=== PATIENT | female | born 1955 | race Caucasian/White ===

== ENCOUNTER 2021-01-02 15:18 | Emergency (ER) | payer BC, SELFPAY ==
[2021-01-02] VITALS (45 sets, daily range): BP systolic 143–182; BP diastolic 55–123; PULSE 60–86; RESP 9–24; TEMP 36.8; O2SAT 90–97
--- NOTE | 2021-01-02 15:30 | ED.GENADUL_ITS ---
Discharge Plan Disposition Patient Disposition: HOME Condition: Stable Discharge Details Clinical Impression: Bright red rectal bleeding, Colitis, Proctitis Primary Care Provider: Unknown,Unknown ED Provider: Tere Wisdom Home Meds and New Rx's Prescriptions: Continued atenolol 25 mg Tablet 25 mg PO BID RF: 0 quinapril [Accupril] 40 mg Tablet 40 mg PO BID RF: 0 hydrochlorothiazide 25 mg Tablet 20 mg PO DAILY RF: 0 pantoprazole [Protonix] 40 mg Tablet,Delayed Release (Dr/Ec) 40 mg PO DAILY RF: 0 clopidogrel [Plavix] 75 mg Tablet 75 mg PO HS RF: 0 levothyroxine 88 mcg Tablet 88 mcg PO HS RF: 0 celecoxib [Celebrex] 200 mg Capsule 200 mg PO QAM RF: 0 metformin 500 mg Tablet 500 - 1,000 mg PO DIRECTED RF: 0 ezetimibe [Zetia] 10 mg Tablet 10 mg PO DAILY RF: 0 rosuvastatin [Crestor] 20 mg Tablet 20 mg PO DIRECTED RF: 0 alprazolam 0.25 mg Tablet 0.25 mg PO DAILY RF: 0 citalopram [Celexa] 10 mg Tablet 10 mg PO DAILY RF: 0 montelukast [Singulair] 10 mg Tablet 10 mg PO HS RF: 0 fluticasone propion-salmeterol [Advair Diskus] 250-50 mcg/dose Blister With Device 1 inh INHALATION BID RF: 0 albuterol sulfate [Ventolin HFA] 90 mcg/actuation Hfa Aerosol Inhaler 2 inh INHALATION DIRECTED RF: 0 Spiriva Respimat 2.5 mcg/actuation Mist 2 inh INHALATION DAILY RF: 0 Cbd Oil 1 applic topical DIRECTED RF: 0 magnesium 30 mg Tablet 30 mg PO DAILY RF: 0 prednisone 20 mg Tablet 30 mg PO DAILY RF: 0 cranberry 400 mg Capsule 400 mg PO DAILY RF: 0 Discharge Instructions Instructions: Rectal Bleeding (ED), Proctitis (ED), Colitis (ED) Additional Instructions: Your initial hemoglobin was normal at 13.5. A repeat hemoglobin is slightly decreased but still within the normal range at 12.8. Your CT scan noted evidence of right-sided colitis which is inflammation in your colon and proctitis which is inflammation in your rectal area. Hold your Plavix until follow-up with your primary care doctor. Continue your prednisone as directed until finished. Call your primary care doctor tomorrow to schedule a follow-up appointment within the next week. Return immediately to the emergency department if you develop any worsening or new concerning symptoms such as dizziness, difficulty breathing, worsening abdominal pain, or return and persistence of rectal bleeding. Discharge Data Discharge Date/Time-TO BE ENTERED AT DEPARTURE: 01/02/21 20:08 Discharge Physician: Tere Wisdom Medical Decision Making 65yo F with a history of morbid obesity, hypertension, hyperlipidemia, diabetes, iron deficiency anemia chronic, recent diagnosis of lymphocytic colitis per colonoscopy on steroids presents for one episode of bright red rectal bleeding a few days ago and more significant bright red rectal bleeding today associated with left lower quadrant abdominal cramping. She denies any symptoms at present. Her blood pressure is hypertensive. She appears comfortable and nontoxic. Her abdomen is obese and tender in the left lower quadrant. Bright red dried blood noted in perineum and around rectum. Bedside speculum exam performed without any vaginal or bleeding from cervix noted. There is no evidence of vaginal or perineal laceration. Bedside rectal exam negative for stool but obviously heme positive from the surrounding blood. Differential diagnosis includes internal hemorrhoids, colitis, diverticulitis, etc. Will place an IV, screening labs, bolus IV fluids, CT abdomen and pelvis. Labs and imaging reviewed. White blood cell count 4. Hemoglobin 13.5. Hematocrit 39.8. Platelets 107. CT abdomen and pelvis notes: IMPRESSION: 1. Possible mild right-sided colitis and possible proctitis. No evidence for diverticulitis. 2. Changes of cirrhosis and early portal hypertension. Case discussed with Dr. Townsend to review CT imaging. Dr. Townsend reviewed the imaging and agrees there may be a colitis and potentially proctitis. Patient is on prednisone currently for a pulmonary issue. Dr. Townsend recommends to recheck a 4-hour hemoglobin and to hold patient's Plavix. If hemoglobin slightly down trended or stable, will plan for discharge to home if she remains stable. Repeat hemoglobin remains within normal range at 12.8. Patient has had no further bleeding. Patient feels comfortable with discharge to home. She plans to return to [place] this evening. She is advised to hold her Plavix until follow-up with her PCP next week. 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 Usual and customary return precautions given prior to discharge. Medical Records Medical records reviewed: Yes I reviewed the patient's medical records. Imaging Data Radiologic Study: Radiologist's impression: CT Abdomen And Pelvis With Contrast Exam date and time: 01/02/2021 4:13 PM Age: 65 years old Clinical indication: Other: Llq crampy pain, rectal bleeding; Patient HX: R/O colitis, diverticulitis TECHNIQUE: Imaging protocol: Computed tomography of the abdomen and pelvis with contrast. Contrast material: OMNIPAQUE 350; Contrast volume: 100 ml; Contrast route: INTRAVENOUS (IV); COMPARISON: No relevant prior studies available. FINDINGS: Lungs: Mild left lower lobe atelectasis. Pleural spaces: There is a small left pleural effusion. Liver: There is nodular change to the hepatic surface with shrunken right lobe and relative left lobe enlargement consistent with cirrhosis. Gallbladder and bile ducts: Status post cholecystectomy. Pancreas: Normal. No ductal dilation. Spleen: Normal. No splenomegaly. Adrenal glands: Normal. No mass. Kidneys and ureters: Normal. No hydronephrosis. Stomach and bowel: There may be mild wall edema involving the right colon and portions of the transverse colon, not well distended. There may be mild colonic wall thickening at the rectal level. Hemorrhoids not excludable. Appendix: No evidence of appendicitis. Intraperitoneal space: Mild ascites. Mild ascites. Small, fat containing periumbilical hernia. Vasculature: Unremarkable. No abdominal aortic aneurysm. Lymph nodes: Unremarkable. No enlarged lymph nodes. Urinary bladder: Unremarkable as visualized. Reproductive: Unremarkable as visualized. Bones/joints: Unremarkable. No acute fracture. Soft tissues: Postsurgical change noted at the epigastric level. IMPRESSION: 1. Possible mild right-sided colitis and possible proctitis. No evidence for diverticulitis. 2. Changes of cirrhosis and early portal hypertension. Lab Data Lab results reviewed: Yes I reviewed the patient's lab results. Labs: Laboratory Tests Range/Units 01/02/21 01/02/21 01/02/21 15:25 15:25 15:25 WBC (4.4-10.8) 10^3/uL 4.90 RBC (3.93-5.22) 10^6/uL 3.83 L Hgb (11.2-15.7) g/dL 13.5 Hct (36.0-46.0) % 39.8 MCV (80-95) fL 103.9 H MCH (27.0-33.0) pg 35.2 H MCHC (32.0-36.0) % 33.9 RDW (11.7-14.6) % 15.4 H Plt Count (130-400) 10^3/uL 107 L MPV (8.0-11.0) fL 9.1 Immature Gran % 0.2 Neutrophils % 78.2 Lymphocytes % 12.0 Monocytes % 9.4 Eosinophils % 0.0 Basophils % 0.2 Nucleated RBC % % 0 Absolute Neutrophils (1.2-6.7) 10^3/uL 3.83 Absolute Lymphocytes (1.2-3.4) 10^3/uL 0.59 L Absolute Monocytes (0.1-0.8) 10^3/uL 0.46 Absolute Eosinophils (0.0-0.7) 10^3/uL 0.00 Absolute Basophils (0.0-0.2) 10^3/uL 0.01 Sodium (136-145) mmol/L 140 Potassium (3.5-5.1) mmol/L 3.5 Chloride (98-107) mmol/L 104 Carbon Dioxide (21.0-32.0) mmol/L 24.7 Anion Gap (3-11) mmol/L 11.3 H BUN (7-18) mg/dL 12 Creatinine (0.55-1.02) mg/dL 0.8 Estimated GFR/1.73 m2 (mL/min/1.73m2) >= 60.00 Glucose (74-106) mg/dL 162 H Calcium (8.5-10.1) mg/dL 9.2 Total Bilirubin (0.2-1.0) mg/dL 1.3 H AST (15-37) U/L 57 H ALT (14-59) U/L 84 H Alkaline Phosphatase (46-116) U/L 77 Total Protein (6.4-8.2) g/dL 6.8 Albumin (3.4-5.0) g/dL 3.0 L Patient ABO/Rh A Positive Antibody Screen NEGATIVE Range/Units 01/02/21 19:30 WBC (4.4-10.8) 10^3/uL RBC (3.93-5.22) 10^6/uL Hgb (11.2-15.7) g/dL 12.8 Hct (36.0-46.0) % 37.8 MCV (80-95) fL MCH (27.0-33.0) pg MCHC (32.0-36.0) % RDW (11.7-14.6) % Plt Count (130-400) 10^3/uL MPV (8.0-11.0) fL Immature Gran % Neutrophils % Lymphocytes % Monocytes % Eosinophils % Basophils % Nucleated RBC % % Absolute Neutrophils (1.2-6.7) 10^3/uL Absolute Lymphocytes (1.2-3.4) 10^3/uL Absolute Monocytes (0.1-0.8) 10^3/uL Absolute Eosinophils (0.0-0.7) 10^3/uL Absolute Basophils (0.0-0.2) 10^3/uL Sodium (136-145) mmol/L Potassium (3.5-5.1) mmol/L Chloride (98-107) mmol/L Carbon Dioxide (21.0-32.0) mmol/L Anion Gap (3-11) mmol/L BUN (7-18) mg/dL Creatinine (0.55-1.02) mg/dL Estimated GFR/1.73 m2 (mL/min/1.73m2) Glucose (74-106) mg/dL Calcium (8.5-10.1) mg/dL Total Bilirubin (0.2-1.0) mg/dL AST (15-37) U/L ALT (14-59) U/L Alkaline Phosphatase (46-116) U/L Total Protein (6.4-8.2) g/dL Albumin (3.4-5.0) g/dL Patient ABO/Rh Antibody Screen HPI General Mode of arrival: EMS . Date/Time Provider Initiated Documentation: 01/02/21 15:29 . Limitations to Documentation: no limitations . Information obtained by: patient . HPI Narrative: Patient is a 65-year-old female with a history of morbid obesity, diabetes, hypertension, hyperlipidemia, cirrhosis secondary to fatty liver presents for bright red rectal bleeding since 11 AM this morning. She does admit to a brief episode of a moderate amount of bright red bleeding 4 days ago in the toilet but not since then. She states today she had a large amount of bright red bleeding in the toilet with a bowel movement. She does admit to one episode of watery brown diarrhea 3 days ago. She states she has a history of internal hemorrhoids but denies any rectal pain. She does also states today that she developed left lower quadrant cramping which is currently absent. She denies any fever, nausea, vomiting, urinary symptoms. Patient has been on Plavix for the last 3 years. She states she had been on Coumadin for the past 19 years prior to starting her Plavix secondary to a carotid artery dissection. Related Data Home Medications Medication Instructions Recorded Confirmed Cbd Oil 1 applic TOPICAL DIRECTED 01/02/21 01/02/21 Spiriva Respimat 2 inh INHALATION DAILY 01/02/21 01/02/21 albuterol sulfate [Ventolin HFA] 2 inh INHALATION DIRECTED 01/02/21 01/02/21 alprazolam 0.25 mg PO DAILY 01/02/21 01/02/21 atenolol 25 mg PO BID 01/02/21 01/02/21 celecoxib [Celebrex] 200 mg PO QAM 01/02/21 01/02/21 citalopram [Celexa] 10 mg PO DAILY 01/02/21 01/02/21 clopidogrel [Plavix] 75 mg PO HS 01/02/21 01/02/21 cranberry 400 mg PO DAILY 01/02/21 01/02/21 ezetimibe [Zetia] 10 mg PO DAILY 01/02/21 01/02/21 fluticasone propion-salmeterol 1 inh INHALATION BID 01/02/21 01/02/21 [Advair Diskus] hydrochlorothiazide 20 mg PO DAILY 01/02/21 01/02/21 levothyroxine 88 mcg PO HS 01/02/21 01/02/21 magnesium 30 mg PO DAILY 01/02/21 01/02/21 metformin 500 - 1,000 mg PO DIRECTED 01/02/21 01/02/21 montelukast [Singulair] 10 mg PO HS 01/02/21 01/02/21 pantoprazole [Protonix] 40 mg PO DAILY 01/02/21 01/02/21 prednisone 30 mg PO DAILY 01/02/21 01/02/21 quinapril [Accupril] 40 mg PO BID 01/02/21 01/02/21 rosuvastatin [Crestor] 20 mg PO DIRECTED 01/02/21 01/02/21 Allergies Allergy/AdvReac Type Severity Reaction Status Date / Time butorphanol [From Stadol] AdvReac Intermediate collapses Unverified 01/02/21 15:35 ciprofloxacin [From Cipro] AdvReac Intermediate SOB Unverified 01/02/21 15:35 orphenadrine [From Norflex] AdvReac Intermediate collapses Unverified 01/02/21 15:35 Penicillins AdvReac Intermediate as a Unverified 01/02/21 15:35 child General Stated Complaint: GI Bleed JOSE ALFREDO: 3 Review of Systems All systems reviewed & are unremarkable except as noted in HPI and below Constitutional Constitutional: Reports as per HPI, Denies chills and Denies fever(s) Eyes Eyes: Denies blurry vision ENT Ears, Nose, Mouth, and Throat: Denies dizziness, Denies sore throat and Denies throat swelling Cardiovascular Cardiovascular: Denies chest pain and Denies dyspnea Respiratory Respiratory: Denies cough and Denies dyspnea Gastrointestinal Gastrointestinal: Reports abdominal pain, Reports hematochezia, Reports diarrhea and Denies vomiting Genitourinary Genitourinary: Denies hematuria and Denies dysuria Musculoskeletal Musculoskeletal: Denies back pain and Denies numbness Integumentary/Breasts Skin/Breast: Denies lesions and Denies rash Neurologic Neurologic: Denies dizziness, Denies localized weakness and Denies numbness Allergic/Immunologic Allergic/Immunologic: Denies throat swelling [facility] Medical History (Updated 01/02/21 @ 19:53 by Tere Wisdom DO) Carotid artery dissection Chronic bronchitis Cirrhosis Decreased ferritin Diabetes mellitus Fibromuscular dysplasia Hx of hyperlipidemia Hypertension Hypothyroidism Iron deficiency anemia Surgical History (Updated 01/02/21 @ 16:41 by Tere Wisdom DO) H/O carotid endarterectomy History of Roselia fundoplication History of tonsillectomy Hx of cholecystectomy Tubal ligation status Social History Smoking/Tobacco Use Status: Former Tobacco Use Tobacco: How many years used: 17 Smoking risk assessment performed?: Yes Alcohol Intake: former Substance use type: does not use Details: smoked age [age] no longer drinks uses CBD oil Do you feel safe at home: Yes Do you feel safe in your relationship?: Yes Exam Const General: cooperative, comfortable and no acute distress Nutritional Appearance: obese morbidly obese Orientation: alert, awake and oriented x3 HENMT Head: normal to inspection Face and sinus: normal facial exam Eyes General: appearance normal, both eyes and all related structures Pupils: PERRL EOM: EOM intact bilaterally Neck Neck: normal visual inspection and No submandibular swelling Lymphatic: no lymphadenopathy noted Chest Chest: normal inspection of the chest and no tenderness Resp Effort & Inspection: normal respiratory effort and able to speak in complete sentences Auscultation: clear to auscultation bilaterally Cardio Rate: regular rate Rhythm: regular rhythm GI Inspection: normal to inspection Palpation: soft, not firm, not rigid and tender in the LLQ Auscultation: hypoactive bowel sounds Rectal Exam - female: hemorrhoids (nonthrombosed) and other (bright red blood noted around rectum and in perineum) External Female Exam: normal external appearance and no lacerations Speculum Exam - Vagina: No vaginal bleeding Speculum Exam - Cervix: normal appearance of the cervix OB/External & Speculum: No vaginal bleeding Skin General skin exam: no rashes or lesions noted Neuro General: patient alert, patient awake and patient oriented x3 Cognition: normal cognition Speech: speech normal Motor: muscle tone normal throughout Sensory Exam: no sensory deficits noted Extrem General: normal to inspection, full ROM, capillary refill normal, no calf tenderness bilaterally and no edema Psych Appearance: grossly normal Mental Status: mental status grossly normal Speech and Movement: speech and movement normal Affect: normal affect Course Vital Signs Vital signs: Vital Signs Temperature 98.2 F 01/02/21 15:13 Pulse 82 01/02/21 15:13 Respiratory Rate 16 01/02/21 15:13 Blood Pressure 182/81 H 01/02/21 15:13 Pulse Oximetry 96 01/02/21 15:13 Temperature 98.2 F 01/02/21 15:13 Temperature Source Skin 01/02/21 15:13 Pulse 82 01/02/21 15:13 Respiratory Rate 16 01/02/21 15:13 Blood Pressure 182/81 H 01/02/21 15:13 Pulse Oximetry 96 01/02/21 15:13 Oxygen Delivery Method Room Air 01/02/21 15:13 Oxygen Flow Rate 0 01/02/21 15:13 Pain Level 0 01/02/21 15:13
[2021-01-02 15:39] LABS: Abs Immature Grans 0.01 10^3/uL (0.0-0.06); Absolute Basophil Count 0.01 10^3/uL (0.0-0.2); Absolute Lymphocyte Count 0.59 10^3/uL (1.2-3.4); Absolute Monocyte Count 0.46 10^3/uL (0.1-0.8); Absolute Neutrophil Count 3.83 10^3/uL (1.2-6.7); Basophils % 0.2; HCT 39.8 % (36.0-46.0); HGB 13.5 g/dL (11.2-15.7); Immature Grans % 0.2; MCH 35.2 pg (27.0-33.0); MCHC 33.9 % (32.0-36.0); MCV 103.9 fL (80-95); MPV 9.1 fL (8.0-11.0); Monocytes % 9.4; Neutrophils % 78.2; Nucleated RBC 0 %; Platelet Count 107 10^3/uL (130-400); RBC 3.83 10^6/uL (3.93-5.22); RDW 15.4 % (11.7-14.6); RDW-SD 59.3 fL
[2021-01-02 15:51] LABS: ALT 84 U/L (14-59); AST 57 U/L (15-37); Alkaline Phosphatase 77 U/L (46-116); Anion Gap 11.3 mmol/L (3-11); BUN 12 mg/dL (7-18); Bilirubin, Total 1.3 mg/dL (0.2-1.0); CO2 24.7 mmol/L (21.0-32.0); CREATININE 0.8 mg/dL (0.55-1.02); Calcium 9.2 mg/dL (8.5-10.1); Chloride 104 mmol/L (98-107); Glucose 162 mg/dL (74-106); Potassium 3.5 mmol/L (3.5-5.1); Sodium 140 mmol/L (136-145); Total Protein 6.8 g/dL (6.4-8.2)
--- NOTE | 2021-01-02 16:00 | DI.CT_ITS ---
Exam(s) CT ABDOMEN PELVIS W EXAM: CT ABDOMEN PELVIS W CLINICAL HISTORY: LLQ crampy pain, rectal bleeding. TECHNIQUE: Imaging Protocol: Axial computed tomography images with coronal and sagittal reformatted images were created and reviewed CONTRAST MATERIAL: Intravenous: Omnipaque 350 Contrast volume:100 ml Oral: yes COMPARISON: No exams were available for comparison FINDINGS: ABDOMEN: Lung Bases: Small left pleural effusion and adjacent mild atelectasis. Liver: Nodular cirrhotic appearing liver. No measurable mass. Splenic and portal veins patent. Gallbladder and biliary tract: Status post cholecystectomy. No biliary dilatation. Pancreas: Normal density, no abnormal calcifications or inflammatory process. Spleen: Mildly enlarged. Kidneys: Normal size, contour and axis. No radiodense stones or obstructive uropathy. No masses seen. Adrenal glands: No masses seen. Abdominal Aorta: Abdominal portion non-dilated. Surgical clips around GE junction and fundus of stomach. PELVIS: Bladder: No gross wall thickening. No calculi.No focal mass. Bowel: Bowel somewhat difficult to evaluate due to surrounding ascites and lack of oral contrast.. No obstruction. There is a question of wall thickening involving the ascending and transverse colon.. Normal quantity of stool. Peritoneal cavity: Moderate quantity of abdominal and pelvic ascites. Bones: Within normal limits for age. Reproductive organs: Within normal limits. Lymph nodes: Unremarkable. Impression: Cirrhotic liver. Moderate quantity of ascites. Question of wall thickening of the ascending colon cou ld indicate colitis. No obstruction. RADIATION DOSE DELIVERED: 1,621.21mGy.cm Total DLP DATA REPOSITORY: All CT scans at this facility are submitted to the National Radiology Data Registry (NRDR) Dose Index Registry (DIR) with the [employer] ([employer]). RADIATION OPTIMIZATION: All CT scans at this facility use at least one of these dose optimization te chniques: automated exposure control; mA and/or kV adjustment per patient size (includes targeted exa ms where dose is matched to clinical indication); or iterative reconstruction.
[2021-01-02] MEDS: Omnipaque 350 MG/ML 100 ML BTL IJ (16:57)
[2021-01-02] MEDS: Normal Saline Flush 10 ML SYR IVP (16:57)
--- NOTE | 2021-01-02 17:34 | DI.VRAD_ITS ---
PROCEDURE INFORMATION: Exam: CT Abdomen And Pelvis With Contrast Exam date and time: 01/02/2021 4:13 PM Age: 65 years old Clinical indication: Other: Llq crampy pain, rectal bleeding; Patient HX: R/O colitis, diverticulitis TECHNIQUE: Imaging protocol: Computed tomography of the abdomen and pelvis with contrast. Contrast material: OMNIPAQUE 350; Contrast volume: 100 ml; Contrast route: INTRAVENOUS (IV); COMPARISON: No relevant prior studies available. FINDINGS: Lungs: Mild left lower lobe atelectasis. Pleural spaces: There is a small left pleural effusion. Liver: There is nodular change to the hepatic surface with shrunken right lobe and relative left lobe enlargement consistent with cirrhosis. Gallbladder and bile ducts: Status post cholecystectomy. Pancreas: Normal. No ductal dilation. Spleen: Normal. No splenomegaly. Adrenal glands: Normal. No mass. Kidneys and ureters: Normal. No hydronephrosis. Stomach and bowel: There may be mild wall edema involving the right colon and portions of the transverse colon, not well distended. There may be mild colonic wall thickening at the rectal level. Hemorrhoids not excludable. Appendix: No evidence of appendicitis. Intraperitoneal space: Mild ascites. Mild ascites. Small, fat containing periumbilical hernia. Vasculature: Unremarkable. No abdominal aortic aneurysm. Lymph nodes: Unremarkable. No enlarged lymph nodes. Urinary bladder: Unremarkable as visualized. Reproductive: Unremarkable as visualized. Bones/joints: Unremarkable. No acute fracture. Soft tissues: Postsurgical change noted at the epigastric level. IMPRESSION: 1. Possible mild right-sided colitis and possible proctitis. No evidence for diverticulitis. 2. Changes of cirrhosis and early portal hypertension. Dictated and Authenticated by: Jocelin Ulloa MD. Ordering:MARCO Carranza MD
[2021-01-02] MEDS: Normal Saline 500 ML IV (18:14)
[2021-01-02] MEDS: Atenolol 25 MG TAB PO (18:21)
[2021-01-02 19:43] LABS: HCT 37.8 % (36.0-46.0); HGB 12.8 g/dL (11.2-15.7)
== END 2021-01-02 20:08 | disposition home or self-care (01) ==
PROVIDERS: Emergency Provider Physician Assistant
DX: K62.5 Hemorrhage of anus and rectum (principal); K52.9 Noninfective gastroenteritis and colitis, unspecified; K62.89 Other specified diseases of anus and rectum
CPT/HCPCS: 36415; 80053; 86850; 86900; 86901; 96360; 99285; 74177; 85014; 85018; 85025; 99284; J3490